=== PATIENT | female | born 1990 ===

== ENCOUNTER 2020-08-29 10:10 | Outpatient (CLI) | payer OTHER | END 2020-08-29 10:16 | disposition home or self-care (01) | LOC: PPH VACUNA 10:10 | DX: Z23 Encounter for immunization (principal) ==

== ENCOUNTER 2021-03-05 14:50 | Outpatient (CLI) | payer OTHER | END 2021-03-05 15:20 | disposition home or self-care (01) | LOC: PPH VACUNA 14:50 | PROVIDERS: ATTEND Emergency Medicine Pediatric Emergency Medicine | DX: Z23 Encounter for immunization (principal) ==